=== PATIENT | male | born 1960 | race Caucasian/White ===

== ENCOUNTER → 2017-07-17 | Outpatient (CLI) | payer OTHER ==
--- NOTE | 2017-07-18 13:18 | REP ---
MRI LUMBAR SPINE WITHOUT CONTRAST: HISTORY: Low back pain. Comparison MRI study lumbar spine is from January 01 1007. TECHNIQUE: Sagittal and axial T1 and T2-weighted scans are acquired in the usual fashion with and without fat saturation. Sequences include spin echo, turbo spin-echo, and STIR imaging sequences. MRI FINDINGS: There is straightening of the normal lumbar lordosis. Lumbar vertebral body heights are preserved. Alignment is normal. There is degenerative disc narrowing with reactive marrow changes on either side of the L5-S1 disc level. Axial and sagittal images at L5-S1 demonstrate posterior osteophytic ridging and mild diffuse disc bulging. No thecal sac compression. There is mild facet hypertrophy. Neural foramina appear adequate. A mild degenerative retrolisthesis is again noted unchanged from 2007. At L4-5, there is mild diffuse disc bulging. This indents the ventral margin of the thecal sac but there is no evidence of central canal stenosis. No neural foraminal narrowing is seen. L3-4, there is mild diffuse disc bulging as well. No other finding. At L2-3, there is mild diffuse disc bulging as well. At L1-2, there is no abnormality. A small hemangioma is present at T12. IMPRESSION: Mild degenerative spondylosis changes most pronounced at L5-S1. Mild diffuse disc bulging at L5-S1, L4-5, L3-4, and L2-3. Changes are quite similar to the 2007 prior study. No significant new finding. Signed by Steven Garcia MD 07/18/2017 10:09 A
== END ==
LOC: M RAD 18:11
PROVIDERS: ATTEND Nurse Practitioner Family
DX: M54.5 Low back pain (principal)

== ENCOUNTER → 2019-12-25 | Outpatient (CLI) | payer MEDICARE ==
--- NOTE | 2019-12-26 08:08 | ECGEPIP ---
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
== END ==
LOC: M EKG 09:46
PROVIDERS: ATTEND Orthopaedic Surgery
DX: Z01.810 Encounter for preprocedural cardiovascular examination (principal); M23.203 Derangement of unspecified medial meniscus due to old tear or injury, right knee

== ENCOUNTER → 2020-10-05 | Outpatient (CLI) | payer MEDICARE ==
[~2020-10-05] MED LIST: DULO1CAP6; GABA-843; LISI10TA4; OMEP-218; SIMV10TA21; TRAZ-252
== END ==
LOC: M LABSMTC 11:44
PROVIDERS: ATTEND Anesthesiology
DX: Z01.818 Encounter for other preprocedural examination (principal)
CPT/HCPCS: C9803; U0003

== ENCOUNTER 2020-10-10 06:53 | Day surgery (SDC) | payer MEDICARE ==
[~2020-10-10] VITALS: Ht 180.3 cm; Wt 85.2 kg
[~2020-10-10 06:53] MED LIST changes: +NS 1,000 ML IV ONE
[2020-10-10] MEDS ORDERED: LIDOCAINE 2% 100MG/5ML SDV (FOR ANES.) As Ordered ONE (07:04)
[2020-10-10] MEDS ORDERED: propofoL 200 MG/20 ML VIAL As Ordered ONE (07:04)
--- NOTE | 2020-10-10 08:32 | ROOR ---
Patient Name: Dario Cedeño Procedure Date: 10/10/2020 8:13 AM Date of : 1960 Age: 60 Room: [facility] Gender: Male Note Status: Finalized Procedure: Upper Endoscopy + Biopsies Indications: Heartburn, Exclusion of Grace's esophagus Providers: Erick Pringle MD Referring MD: Shelia Puente DO Requesting Provider: Medicines: Monitored Anesthesia Care Complications: No immediate complications. Procedure: Pre-Anesthesia Assessment: - The heart rate, respiratory rate, oxygen saturations, blood pressure, adequacy of pulmonary ventilation, and response to care were monitored throughout the procedure. The Endoscope was introduced through the mouth, and advanced to the second part of duodenum. The upper GI endoscopy was accomplished without difficulty. The patient tolerated the procedure well. Findings: The Z-line was irregular and was found 40 cm from the incisors. Multiple biopsies were obtained with cold forceps for evaluation to rule out Grace's Esophagus randomly at the gastroesophageal junction. A small hiatal hernia was present. No other significant abnormalities were identified in a careful examination of the stomach. The exam of the duodenum was otherwise normal. Impression: - Z-line irregular, 40 cm from the incisors. - Small hiatal hernia. - Multiple biopsies were obtained at the gastroesophageal junction. - The examination was otherwise normal. Recommendation: - Patient has a contact number available for emergencies. The signs and symptoms of potential delayed complications were discussed with the patient. Return to normal activities tomorrow. Written discharge instructions were provided to the patient. - High fiber diet. - Discharge patient to home. - Follow an antireflux regimen. - Continue present medications. - Await pathology results. - Telephone GI clinic for pathology results in 1 week. - Return to referring physician. - The findings and recommendations were discussed with the patient. Erick Pringle MD Erick Pringle MD 10/10/2020 8:31:30 AM Electronically signed by Erick Pringle MD Number of Addenda: 0 Note Initiated On: 10/10/2020 8:13 AM Estimated Blood Loss: Estimated blood loss: none.
--- NOTE | 2020-10-10 08:50 | ROOR ---
Patient Name: Dario Cedeño Procedure Date: 10/10/2020 8:14 AM Date of : 1960 Age: 60 Room: [facility] Gender: Male Note Status: Finalized Procedure: Total Colonoscopy to Cecum + Cold Snare Polypectomy + Hemoclips Indications: Screening for colorectal malignant neoplasm Providers: Erick Pringle MD Referring MD: Shelia Puente DO Requesting Provider: Medicines: Monitored Anesthesia Care Complications: No immediate complications. Procedure: Pre-Anesthesia Assessment: - The heart rate, respiratory rate, oxygen saturations, blood pressure, adequacy of pulmonary ventilation, and response to care were monitored throughout the procedure. The Colonoscope was introduced through the anus and advanced to the cecum, identified by appendiceal orifice and ileocecal valve. The colonoscopy was performed without difficulty. The patient tolerated the procedure well. The quality of the bowel preparation was excellent. Findings: The perianal and digital rectal examinations were normal. Non-bleeding internal hemorrhoids were found during retroflexion. The hemorrhoids were small and Grade I (internal hemorrhoids that do not prolapse). Multiple small and large-mouthed diverticula were found in the recto-sigmoid colon, sigmoid colon and descending colon. A medium polyp was found in the cecum. The polyp was sessile. The polyp was removed with a cold snare. Resection and retrieval were complete. To prevent bleeding after the polypectomy, one hemostatic clip was successfully placed (MR conditional). There was no bleeding at the end of the procedure. The exam was otherwise without abnormality on direct and retroflexion views. The terminal ileum appeared normal. Impression: - Non-bleeding internal hemorrhoids. - Diverticulosis in the recto-sigmoid colon, in the sigmoid colon and in the descending colon. - One medium polyp in the cecum, removed with a cold snare. Resected and retrieved. Clip (MR conditional) was placed. - The examination was otherwise normal on direct and retroflexion views. - The examined portion of the ileum was normal. - The exam was otherwise normal to the cecum. Recommendation: - Patient has a contact number available for emergencies. The signs and symptoms of potential delayed complications were discussed with the patient. Return to normal activities tomorrow. Written discharge instructions were provided to the patient. - High fiber diet. - Discharge patient to home. - Continue present medications. - Await pathology results. - Telephone GI clinic for pathology results in 1 week. - Repeat colonoscopy in 5 years for surveillance. - Return to referring physician. - The findings and recommendations were discussed with the patient. Erick Pringle MD Erick Pringle MD 10/10/2020 8:49:47 AM Electronically signed by Erick Pringle MD Number of Addenda: 0 Note Initiated On: 10/10/2020 8:14 AM Estimated Blood Loss: Estimated blood loss: none.
[2020-10-10 09:23] VITALS: BP 115/73
== END 2020-10-10 09:26 | disposition home or self-care (01) ==
LOC: M OPP 06:53
PROVIDERS: ATTEND Internal Medicine Gastroenterology
DX: Z12.11 Encounter for screening for malignant neoplasm of colon (principal); K63.5 Polyp of colon; K64.0 First degree hemorrhoids; K57.30 Diverticulosis of large intestine without perforation or abscess without bleeding; K22.8 Other specified diseases of esophagus; K44.9 Diaphragmatic hernia without obstruction or gangrene; R12 Heartburn; Z79.899 Other long term (current) drug therapy

== ENCOUNTER 2025-06-07 07:24 | Day surgery (SDC) | payer MEDICARE ==
[~2025-06-07] VITALS: Ht 177.8 cm; Wt 88.5 kg
[~2025-06-07 07:24] MED LIST changes: -DULO1CAP6; +DULO1CAP6 PO; +GABA-1172 PO; -GABA-843; +LISI10TA22 PO; -LISI10TA4; -NS 1,000 ML IV ONE; +OMEP-173 PO; -OMEP-218; -SIMV10TA21; +SIMV10TA21 PO; -TRAZ-252; +TRAZ-252 PO
[2025-06-07] MEDS ORDERED: LIDOCAINE 2% 100 MG/5 ML SDV (FOR ANES.) As Ordered ONE (08:39)
[2025-06-07 08:59] VITALS: TEMP 97.7
[2025-06-07 09:28] VITALS: BP 126/80; O2SAT 97
== END 2025-06-07 09:28 | disposition home or self-care (01) ==
LOC: M OPP 07:24
PROVIDERS: ATTEND Internal Medicine Gastroenterology
DX: Z12.11 Encounter for screening for malignant neoplasm of colon (principal); K63.5 Polyp of colon; K57.30 Diverticulosis of large intestine without perforation or abscess without bleeding; K64.0 First degree hemorrhoids; Z86.0100 Personal history of colon polyps, unspecified; Z79.899 Other long term (current) drug therapy